=== PATIENT | male | born 1995 ===

== ENCOUNTER → 2016-06-10 | Outpatient (CLI) | payer OTHER ==
[~2016-06-10] VITALS: Ht 190.5 cm; Wt 86.4 kg
[2016-06-10 13:48] VITALS: BP 116/73; PULSE 60; Ht 190.5 cm; Wt 86.4 kg
== END | disposition home or self-care (01) ==
LOC: C.NEUR 13:26
PROVIDERS: ATTEND Internal Medicine Pulmonary Disease
DX: R06.83 Snoring (principal); R53.83 Other fatigue; R06.81 Apnea, not elsewhere classified

== ENCOUNTER → 2016-06-22 | Outpatient (CLI) | payer OTHER ==
--- NOTE | 2016-06-24 10:52 | POLYSOMNOGRAPH REPORT ---
CLINICAL DATA: A 21-year-old male with BMI of 23.[address] Buck and myself for a sleep study. He has a history of snoring and witnessed apnea. His girlfriend has noted crescendo snoring followed by apneic episodes more frequently over the last few months. On the evening of 06/23/2016, a home sleep apnea test was performed using a Wolf type 3 monitor. RECORDING RESULTS: Total recording time was 9.8 hours. The patient estimated sleep time and the patient monitoring time was 6.4 hours. RESPIRATORY DATA: There was no evidence of clinically significant sleep apnea/hypopnea noted. The COLT was 0.6. There were 4 hypopneic episodes. The longest duration of hypopnea was 25 seconds. OXIMETRY DATA: No significant hypoxemia was seen. Oxygen donell was 88%. Mean saturation was 94%. HEART RATE DATA: Heart rates ranged from 52-67 beats per minute. SNORING DATA: Snoring was recorded throughout the night. IMPRESSION: No evidence of clinically significant sleep apnea/hypopnea or nocturnal hypoxemia. The patient did have snoring throughout the night. RECOMMENDATIONS: There is no need for CPAP or an oral appliance based on this study. If snoring is an issue, nasal steroids or ENT evaluation could be considered. SIMONED
== END | disposition home or self-care (01) ==
LOC: C.NEUR 09:55
PROVIDERS: ATTEND Internal Medicine Pulmonary Disease
DX: R53.83 Other fatigue (principal); R06.83 Snoring; R06.81 Apnea, not elsewhere classified